=== PATIENT | male | born 1960 | race Caucasian/White ===

== ENCOUNTER 2019-05-06 14:56 | Inpatient (IN) | payer OTHER ==
[2019-05-06] MEDS: ACETAMINOPHEN 650 MG SUPP PR (15:15)
[2019-05-06] MEDS: SODIUM CHLORIDE 0.9% 1L BAG IV* (15:15)
[2019-05-06 15:27] LABS: ADD MAN DIFF? NO
[2019-05-06 15:28] LABS: WHITE BLOOD COUNT 7.7 10^3/ul (4.8-10.8)
[2019-05-06 15:28] LABS: BASOPHILS % 0.5 % (0.0-2.0); EOSINOPHILS # 0.1 10^3/ul (0.0-0.5); EOSINOPHILS % 0.8 % (0.0-7.0); HEMATOCRIT 43.9 % (42.0-52.0); HEMOGLOBIN 14.6 g/dl (14.0-18.0); LYMPHOCYTES % 25.6 % (15.0-51.0); MEAN CORPUSCULAR HEMOGLOBIN 30.1 pg (29.0-33.0); MEAN CORPUSCULAR HGB CONC 33.3 g/dl (32.0-37.0); MEAN CORPUSCULAR VOLUME 90.5 fl (82.0-101.0); MEAN PLATELET VOLUME 10.4 fl (7.4-10.4); MONOCYTE # 0.3 10^3/ul (0.3-0.9); MONOCYTES % 4.2 % (0.0-11.0); NEUTROPHIL # 5.2 10^3/ul (1.6-7.5); NEUTROPHILS % 67.9 % (39.0-77.0); PLATELET COUNT 185 10^3/UL (140-415); RED BLOOD COUNT 4.85 10^6/ul (4.70-6.10); RED CELL DISTRIBUTION WIDTH 13.8 % (11.5-14.5)
[2019-05-06] MEDS: CEFEPIME 2GM/50 ML (PMX) 50 ML IVPB (15:31)
[2019-05-06] MEDS: LEVETIRACETAM 1000 MG (PMX) 100 ML IVPB ×2 (15:44→22:02)
[2019-05-06 15:48] LABS: INR 0.91; PROTIME 12.4 Sec (11.9-14.9)
[2019-05-06 15:49] LABS: PARTIAL THROMBOPLASTIN TIME 21.1 Sec (23.0-35.0)
[2019-05-06] MEDS: LORAZEPAM 2 MG INJ IV (15:50)
[2019-05-06] MEDS ORDERED: LORAZEPAM 2 MG INJ (15:53)
[2019-05-06 15:54] LABS: ALANINE AMINOTRANSFERASE 12 IU/L (13-69); ALBUMIN 4.9 g/dl (3.3-4.9); ALBUMIN/GLOBULIN RATIO 1.36; ALKALINE PHOSPHATASE 73 IU/L (42-121); ANION GAP 19 (5-13); ASPARTATE AMINO TRANSFERASE 33 IU/L (15-46); BILIRUBIN,INDIRECT 0.4 mg/dl (0-1.1); BILIRUBIN,TOTAL 0.4 mg/dl (0.2-1.3); BLOOD UREA NITROGEN 16 mg/dl (7-20); CALCIUM 10.3 mg/dl (8.4-10.2); CARBON DIOXIDE 17 mmol/L (21-31); CHLORIDE 107 mmol/L (97-110); CREATININE 1.81 mg/dl (0.61-1.24); Estimated GFR 41 mL/min (>60); GLUCOSE 68 mg/dl (70-220); POTASSIUM 5.3 mmol/L (3.5-5.1); SODIUM 143 mmol/L (135-144); TOTAL PROTEIN 8.5 g/dl (6.1-8.1)
[2019-05-06 16:00] LABS: ETHANOL < 10.0 mg/dl (0-0)
[2019-05-06 16:04] LABS: TROPONIN-I 0.042 ng/ml (0.000-0.120)
[2019-05-06] MEDS: VANCOMYCIN 1 GM (PMX) 250 ML IVPB (16:17)
[2019-05-06] MEDS: SOD CHLORIDE 0.9% 1,000 ML IV ×2 (18:30→21:20)
[2019-05-06 18:57] LABS: UR CLARITY SLIGHTLY CLOUDY (CLEAR); UR COLOR AMBER (YELLOW); UR GLUCOSE (Dip) NEGATIVE (NEGATIVE); UR SPECIFIC GRAVITY (Dip) 1.025 (1.003-1.030); UR TOTAL PROTEIN (Dip) NEGATIVE (NEGATIVE)
[2019-05-06 18:58] LABS: ADD UMIC YES; UR BILIRUBIN (Dip) NEGATIVE (NEGATIVE); UR BLOOD (Dip) 2+ mg/dL (NEGATIVE); UR KETONES (Dip) NEGATIVE (NEGATIVE); UR LEUKOCYTE ESTERASE (Dip) NEGATIVE Leu/ul (NEGATIVE); UR MUCUS MODERATE /HPF (NONE SEEN); UR NITRITE (Dip) NEGATIVE (NEGATIVE); UR RBC 13 /HPF (0-5); UR UROBILINOGEN (Dip) NEGATIVE (NEGATIVE); UR WBC 3 /HPF (0-5)
[2019-05-06 19:39] LABS: LACTIC ACID 0.9 mmol/L (0.5-2.0)
[2019-05-06] MEDS ORDERED: SOD CHLORIDE 0.9% 1,000 ML IV (19:56)
[2019-05-06] MEDS ORDERED: ACETAMINOPHEN 325 MG TAB PO (20:00)
[2019-05-06] MEDS ORDERED: LORAZEPAM 2 MG INJ IV (20:00)
[2019-05-06] MEDS ORDERED: ACETAMINOPHEN 650MG/20.3ML CUP PO (20:00)
[2019-05-06] MEDS ORDERED: ALBUTEROL 0.083% (NEB) 2.5 MG/3 ML AMP NEB (20:00)
[2019-05-06] MEDS ORDERED: DOCUSATE SODIUM 100 MG CAP PO (20:00)
[2019-05-06] MEDS ORDERED: ALBUTEROL/IPRATROPIUM (NEB) 3 ML AMP NEB (20:00)
[2019-05-06] MEDS ORDERED: ONDANSETRON 4 MG INJ IV ×2 (20:00)
[2019-05-06] MEDS ORDERED: BISACODYL (EC) 5 MG TAB PO (20:00)
[2019-05-06] MEDS ORDERED: GLUCOSE GEL 15 GRAM TUBE PO ×2 (20:30)
[2019-05-06] MEDS ORDERED: GLUCAGON 1 MG INJ IM (20:30)
[2019-05-06] MEDS ORDERED: DEXTROSE 50% 50 ML SYRINGE IV ×2 (20:30)
[2019-05-06] MEDS ORDERED: GLUCOSE GEL 15 GRAM TUBE BUCCAL (20:30)
[2019-05-06] MEDS: INSULIN ASPART [NOVOLOG] 3 ML PEN SC (21:00)
[2019-05-06 21:38] LABS: BARBITURATES Negative (NEGATIVE); CANNABINOIDS Negative (NEGATIVE); COCAINE Negative (NEGATIVE); OPIATES Negative (NEGATIVE)
[2019-05-06 21:43] LABS: AMPHETAMINE/METHAMPHETAMINE POSITIVE (NEGATIVE); BENZODIAZEPINES Positive (NEGATIVE)
[2019-05-06] MEDS ORDERED: VANCOMYCIN IV PER PHARMACY XX (22:00)
[2019-05-06] MEDS: FAMOTIDINE 20 MG TAB PO (22:34)
[2019-05-06 23:35] LABS: ANION GAP 11 (5-13); BLOOD UREA NITROGEN 22 mg/dl (7-20); CALCIUM 8.1 mg/dl (8.4-10.2); CARBON DIOXIDE 19 mmol/L (21-31); CHLORIDE 113 mmol/L (97-110); CREATININE 1.58 mg/dl (0.61-1.24); Estimated GFR 45 mL/min (>60); GLUCOSE 93 mg/dl (70-220); POTASSIUM 4.1 mmol/L (3.5-5.1); SODIUM 143 mmol/L (135-144)
[2019-05-06 23:48] LABS: CK INDEX 0.2; CK-MB 7.57 ng/ml (0.0-2.4); CREATINE KINASE 4405 IU/L (23-200)
[2019-05-06 23:51] LABS: TROPONIN-I 0.226 ng/ml (0.000-0.120)
[2019-05-07 00:11] LABS: PROCALCITONIN 0.79 ng/mL (0.00-0.10)
[2019-05-07 00:51] LABS: AADO2 Arterial 49.1 mmHg (7.0-24.0); Allen Test ACCEPTAB; Arterial Base Excess -10.5 mmol/L (-3.0-3); Arterial Blood Gas Oxygen Sat 96.7 mmHG (95.0-98.0); Arterial COHb 0.3 % (0.0-3.0); Arterial Fraction of Oxyhgb 96.1 % (93.0-99.0); Arterial HCO3 15.7 mmol/L (22.0-26.0); Arterial MetHb 0.3 % (0.0-1.5); Arterial pCO2 35.7 mmhg (35-45); MODE NASAL CANNULA; Site Right Radial
[2019-05-07] MEDS: INSULIN ASPART [NOVOLOG] 3 ML PEN SC ×6 (01:00→20:44)
[2019-05-07] MEDS: ACCU-CHEK XX (02:00)
[2019-05-07] MEDS: SOD CHLORIDE 0.9% 1,000 ML IV ×5 (02:01→23:24)
[2019-05-07] MEDS: PIPER-TAZO 3.375 GM IV (PMX) 100 ML IVPB ×5 (02:01→23:25)
[2019-05-07] MEDS: VANCOMYCIN 750 MG (PMX) 250 ML IVPB ×2 (02:20→14:06)
[2019-05-07 04:03] LABS: TROPONIN-I 0.126 ng/ml (0.000-0.120)
[2019-05-07 04:43] LABS: CK INDEX 0.2; CREATINE KINASE 5191 IU/L (23-200)
[2019-05-07 05:12] LABS: ADD MAN DIFF? NO
[2019-05-07 05:20] LABS: WHITE BLOOD COUNT 5.4 10^3/ul (4.8-10.8)
[2019-05-07 05:20] LABS: ABNORMAL IP MESSAGE 1; BASOPHILS % 0.2 % (0.0-2.0); EOSINOPHILS % 0.2 % (0.0-7.0); HEMATOCRIT 36.4 % (42.0-52.0); HEMOGLOBIN 11.8 g/dl (14.0-18.0); LYMPHOCYTES # 0.7 10^3/ul (0.8-2.9); LYMPHOCYTES % 13.4 % (15.0-51.0); MEAN CORPUSCULAR HEMOGLOBIN 29.6 pg (29.0-33.0); MEAN CORPUSCULAR HGB CONC 32.4 g/dl (32.0-37.0); MEAN CORPUSCULAR VOLUME 91.5 fl (82.0-101.0); MONOCYTE # 0.5 10^3/ul (0.3-0.9); MONOCYTES % 9.3 % (0.0-11.0); NEUTROPHIL # 4.1 10^3/ul (1.6-7.5); NEUTROPHILS % 76.3 % (39.0-77.0); PLATELET COUNT 71 10^3/UL (140-415); POSITIVE DIFF @See below; RED BLOOD COUNT 3.98 10^6/ul (4.70-6.10); RED CELL DISTRIBUTION WIDTH 14.1 % (11.5-14.5)
[2019-05-07 05:35] LABS: HEMOGLOBIN A1C 5.1 % (0-5.9)
[2019-05-07 05:38] LABS: INR 1.17; PT RATIO 1.2
[2019-05-07 05:39] LABS: PARTIAL THROMBOPLASTIN TIME 22.1 Sec (23.0-35.0)
[2019-05-07 06:04] LABS: ALANINE AMINOTRANSFERASE 40 IU/L (13-69); ALBUMIN/GLOBULIN RATIO 1.07; ALKALINE PHOSPHATASE 49 IU/L (42-121); ANION GAP 6 (5-13); ASPARTATE AMINO TRANSFERASE 104 IU/L (15-46); BILIRUBIN,INDIRECT 0.8 mg/dl (0-1.1); BILIRUBIN,TOTAL 0.8 mg/dl (0.2-1.3); BLOOD UREA NITROGEN 23 mg/dl (7-20); CALCIUM 7.6 mg/dl (8.4-10.2); CARBON DIOXIDE 21 mmol/L (21-31); CHLORIDE 114 mmol/L (97-110); CHOL/HDL RATIO 2.7 RATIO; CHOLESTEROL 69 mg/dl (100-200); Estimated GFR 52 mL/min (>60); GLUCOSE 83 mg/dl (70-220); HDL CHOLESTEROL 25 mg/dl (28-71); LDL CHOLESTEROL,CALCULATED 39 mg/dl; MAGNESIUM 2.1 mg/dl (1.7-2.5); SODIUM 141 mmol/L (135-144); TOTAL PROTEIN 5.8 g/dl (6.1-8.1); TRIGLYCERIDES 26 mg/dl (0-149)
[2019-05-07 06:59] LABS: THYROID STIMULATING HORMONE 0.254 MIU/L (0.465-4.680)
[2019-05-07] MEDS: FAMOTIDINE 20 MG TAB PO ×2 (08:48→20:44)
[2019-05-07 09:07] LABS: TROPONIN-I 0.082 ng/ml (0.000-0.120)
[2019-05-07 14:52] LABS: TROPONIN-I 0.043 ng/ml (0.000-0.120)
[2019-05-07 15:04] LABS: CK-MB 7.66 ng/ml (0.0-2.4)
[2019-05-07 15:17] LABS: CK INDEX 0.1; CREATINE KINASE 5590 IU/L (23-200)
[2019-05-07] MEDS: AL HYDROX/MG HYDROX/SIMETH 30 ML CUP PO (23:25)
[2019-05-08] MEDS: VANCOMYCIN 750 MG (PMX) 250 ML IVPB (00:16)
[2019-05-08] MEDS: INSULIN ASPART [NOVOLOG] 3 ML PEN SC ×3 (01:00→08:12)
[2019-05-08] MEDS: ACCU-CHEK XX (01:23)
[2019-05-08 04:58] LABS: ADD MAN DIFF? NO
[2019-05-08 05:17] LABS: WHITE BLOOD COUNT 4.9 10^3/ul (4.8-10.8)
[2019-05-08 05:17] LABS: ABNORMAL IP MESSAGE 1; BASOPHILS % 0.6 % (0.0-2.0); EOSINOPHILS % 0.8 % (0.0-7.0); HEMATOCRIT 37.1 % (42.0-52.0); HEMOGLOBIN 12.1 g/dl (14.0-18.0); LYMPHOCYTES # 1.2 10^3/ul (0.8-2.9); LYMPHOCYTES % 23.3 % (15.0-51.0); MEAN CORPUSCULAR HEMOGLOBIN 30.2 pg (29.0-33.0); MEAN CORPUSCULAR HGB CONC 32.6 g/dl (32.0-37.0); MEAN CORPUSCULAR VOLUME 92.5 fl (82.0-101.0); MEAN PLATELET VOLUME 9.9 fl (7.4-10.4); MONOCYTE # 0.5 10^3/ul (0.3-0.9); MONOCYTES % 9.1 % (0.0-11.0); NEUTROPHIL # 3.3 10^3/ul (1.6-7.5); NEUTROPHILS % 65.8 % (39.0-77.0); PLATELET COUNT 61 10^3/UL (140-415); POSITIVE DIFF @See below; RED BLOOD COUNT 4.01 10^6/ul (4.70-6.10); RED CELL DISTRIBUTION WIDTH 14.1 % (11.5-14.5)
[2019-05-08 05:46] LABS: CREATINE KINASE 4235 IU/L (23-200)
[2019-05-08 05:51] LABS: ALANINE AMINOTRANSFERASE 453 IU/L (13-69); ALBUMIN/GLOBULIN RATIO 1.15; ALKALINE PHOSPHATASE 52 IU/L (42-121); ANION GAP 7 (5-13); ASPARTATE AMINO TRANSFERASE 515 IU/L (15-46); BILIRUBIN,INDIRECT 0.5 mg/dl (0-1.1); BILIRUBIN,TOTAL 0.5 mg/dl (0.2-1.3); BLOOD UREA NITROGEN 12 mg/dl (7-20); CALCIUM 7.5 mg/dl (8.4-10.2); CARBON DIOXIDE 21 mmol/L (21-31); CHLORIDE 112 mmol/L (97-110); CREATININE 1.11 mg/dl (0.61-1.24); Estimated GFR > 60 mL/min (>60); GLUCOSE 70 mg/dl (70-220); POTASSIUM 3.3 mmol/L (3.5-5.1); SODIUM 140 mmol/L (135-144); TOTAL PROTEIN 5.6 g/dl (6.1-8.1)
[2019-05-08] MEDS: PIPER-TAZO 3.375 GM IV (PMX) 100 ML IVPB (06:20)
[2019-05-08] MEDS: SOD CHLORIDE 0.9% 1,000 ML IV ×3 (06:46→20:35)
[2019-05-08] MEDS: POTASSIUM CHLORIDE (SR) 20 MEQ TAB PO ×2 (08:11→13:45)
[2019-05-08] MEDS: FAMOTIDINE 20 MG TAB PO ×2 (08:11→20:34)
[2019-05-08] MEDS: AL HYDROX/MG HYDROX/SIMETH 30 ML CUP PO (08:11)
[2019-05-08 11:48] LABS: VANCOMYCIN,TROUGH 12.1 ug/ml (10.0-20.0)
[2019-05-08] MEDS: CEFTRIAXONE 1 GM/50 ML (PMX) 50 ML IVPB (12:54)
[2019-05-08 17:37] LABS: CREATINE KINASE 2390 IU/L (23-200)
[2019-05-08] MEDS: NICOTINE (21 MG/24 HR) PATCH TRANSDERM (18:46)
[2019-05-09] MEDS: SOD CHLORIDE 0.9% 1,000 ML IV ×4 (04:50→21:33)
[2019-05-09 05:31] LABS: ADD MAN DIFF? NO
[2019-05-09 05:35] LABS: WHITE BLOOD COUNT 4.7 10^3/ul (4.8-10.8)
[2019-05-09 05:35] LABS: ABNORMAL IP MESSAGE 1; BASOPHILS % 0.6 % (0.0-2.0); EOSINOPHILS # 0.1 10^3/ul (0.0-0.5); EOSINOPHILS % 1.3 % (0.0-7.0); HEMATOCRIT 41.6 % (42.0-52.0); HEMOGLOBIN 13.8 g/dl (14.0-18.0); LYMPHOCYTES # 1.1 10^3/ul (0.8-2.9); LYMPHOCYTES % 22.8 % (15.0-51.0); MEAN CORPUSCULAR HEMOGLOBIN 29.8 pg (29.0-33.0); MEAN CORPUSCULAR HGB CONC 33.2 g/dl (32.0-37.0); MEAN CORPUSCULAR VOLUME 89.8 fl (82.0-101.0); MEAN PLATELET VOLUME 9.9 fl (7.4-10.4); MONOCYTE # 0.5 10^3/ul (0.3-0.9); NEUTROPHILS % 63.9 % (39.0-77.0); PLATELET COUNT 82 10^3/UL (140-415); POSITIVE DIFF @See below; RED BLOOD COUNT 4.63 10^6/ul (4.70-6.10); RED CELL DISTRIBUTION WIDTH 13.7 % (11.5-14.5)
[2019-05-09 06:20] LABS: ALANINE AMINOTRANSFERASE 388 IU/L (13-69); ALBUMIN 3.6 g/dl (3.3-4.9); ALBUMIN/GLOBULIN RATIO 1.24; ALKALINE PHOSPHATASE 62 IU/L (42-121); ANION GAP 9 (5-13); ASPARTATE AMINO TRANSFERASE 232 IU/L (15-46); BILIRUBIN,INDIRECT 0.8 mg/dl (0-1.1); BILIRUBIN,TOTAL 0.8 mg/dl (0.2-1.3); BLOOD UREA NITROGEN 4 mg/dl (7-20); CALCIUM 8.4 mg/dl (8.4-10.2); CARBON DIOXIDE 26 mmol/L (21-31); CHLORIDE 106 mmol/L (97-110); CREATININE 0.81 mg/dl (0.61-1.24); Estimated GFR > 60 mL/min (>60); GLUCOSE 98 mg/dl (70-220); POTASSIUM 3.5 mmol/L (3.5-5.1); SODIUM 141 mmol/L (135-144); TOTAL PROTEIN 6.5 g/dl (6.1-8.1)
[2019-05-09 06:36] LABS: CREATINE KINASE 1117 IU/L (23-200)
[2019-05-09] MEDS: FAMOTIDINE 20 MG TAB PO ×2 (08:17→21:21)
[2019-05-09] MEDS: NICOTINE (21 MG/24 HR) PATCH TRANSDERM (08:18)
[2019-05-09] MEDS: LEVOFLOXACIN 750 MG TABLET PO (11:22)
[2019-05-09 12:21] LABS: PHOSPHORUS 1.8 mg/dl (2.5-4.9)
[2019-05-09 19:20] LABS: CREATINE KINASE 675 IU/L (23-200)
[2019-05-10] MEDS: LEVOFLOXACIN 750 MG TABLET PO (05:27)
[2019-05-10 05:54] LABS: ADD MAN DIFF? NO
[2019-05-10 06:04] LABS: BASOPHILS % 0.4 % (0.0-2.0); EOSINOPHILS # 0.1 10^3/ul (0.0-0.5); EOSINOPHILS % 1.1 % (0.0-7.0); HEMATOCRIT 45.8 % (42.0-52.0); HEMOGLOBIN 15.4 g/dl (14.0-18.0); LYMPHOCYTES # 1.2 10^3/ul (0.8-2.9); MEAN CORPUSCULAR HEMOGLOBIN 30.4 pg (29.0-33.0); MEAN CORPUSCULAR HGB CONC 33.6 g/dl (32.0-37.0); MEAN CORPUSCULAR VOLUME 90.3 fl (82.0-101.0); MEAN PLATELET VOLUME 10.3 fl (7.4-10.4); MONOCYTE # 0.4 10^3/ul (0.3-0.9); MONOCYTES % 5.7 % (0.0-11.0); NEUTROPHIL # 5.3 10^3/ul (1.6-7.5); NEUTROPHILS % 75.5 % (39.0-77.0); PLATELET COUNT 107 10^3/UL (140-415); RED BLOOD COUNT 5.07 10^6/ul (4.70-6.10); RED CELL DISTRIBUTION WIDTH 13.4 % (11.5-14.5)
[2019-05-10 06:23] LABS: ALANINE AMINOTRANSFERASE 277 IU/L (13-69); ALBUMIN 3.8 g/dl (3.3-4.9); ALBUMIN/GLOBULIN RATIO 1.35; ALKALINE PHOSPHATASE 60 IU/L (42-121); ANION GAP 10 (5-13); ASPARTATE AMINO TRANSFERASE 108 IU/L (15-46); BILIRUBIN,INDIRECT 0.9 mg/dl (0-1.1); BILIRUBIN,TOTAL 0.9 mg/dl (0.2-1.3); BLOOD UREA NITROGEN 6 mg/dl (7-20); CALCIUM 9.2 mg/dl (8.4-10.2); CARBON DIOXIDE 28 mmol/L (21-31); CHLORIDE 102 mmol/L (97-110); CREATININE 0.82 mg/dl (0.61-1.24); Estimated GFR > 60 mL/min (>60); GLUCOSE 114 mg/dl (70-220); POTASSIUM 3.9 mmol/L (3.5-5.1); SODIUM 140 mmol/L (135-144); TOTAL PROTEIN 6.6 g/dl (6.1-8.1)
[2019-05-10 06:37] LABS: CREATINE KINASE 410 IU/L (23-200)
[2019-05-10] MEDS: SOD CHLORIDE 0.9% 1,000 ML IV (07:24)
[2019-05-10] MEDS: FAMOTIDINE 20 MG TAB PO ×2 (08:20→21:15)
[2019-05-10] MEDS: NICOTINE (21 MG/24 HR) PATCH TRANSDERM (08:21)
[2019-05-10] MEDS: MAGNESIUM SULFATE 1 GM/D5W 100 ML IVPB (15:26)
[2019-05-10] MEDS: METOPROLOL 25 MG TAB PO ×2 (15:26→21:20)
[2019-05-10] MEDS: RISPERIDONE 1 MG TAB PO (21:15)
[2019-05-10] MEDS: HYDROCORTISONE 2.5% 28.35 GM OINT TOP (21:15)
[2019-05-10] MEDS: traZODone 100 MG TAB PO (21:15)
[2019-05-11] MEDS: LEVOFLOXACIN 750 MG TABLET PO (05:14)
[2019-05-11 05:48] LABS: ADD MAN DIFF? NO
[2019-05-11 05:55] LABS: WHITE BLOOD COUNT 8.3 10^3/ul (4.8-10.8)
[2019-05-11 05:55] LABS: BASOPHILS % 0.5 % (0.0-2.0); EOSINOPHILS # 0.2 10^3/ul (0.0-0.5); EOSINOPHILS % 2.4 % (0.0-7.0); HEMATOCRIT 47.2 % (42.0-52.0); HEMOGLOBIN 15.5 g/dl (14.0-18.0); LYMPHOCYTES # 1.9 10^3/ul (0.8-2.9); LYMPHOCYTES % 23.4 % (15.0-51.0); MEAN CORPUSCULAR HEMOGLOBIN 29.6 pg (29.0-33.0); MEAN CORPUSCULAR HGB CONC 32.8 g/dl (32.0-37.0); MEAN CORPUSCULAR VOLUME 90.1 fl (82.0-101.0); MEAN PLATELET VOLUME 10.1 fl (7.4-10.4); MONOCYTE # 0.6 10^3/ul (0.3-0.9); MONOCYTES % 7.4 % (0.0-11.0); NEUTROPHIL # 5.5 10^3/ul (1.6-7.5); NEUTROPHILS % 65.8 % (39.0-77.0); PLATELET COUNT 159 10^3/UL (140-415); RED BLOOD COUNT 5.24 10^6/ul (4.70-6.10); RED CELL DISTRIBUTION WIDTH 13.4 % (11.5-14.5)
[2019-05-11 06:25] LABS: ANION GAP 11 (5-13); BLOOD UREA NITROGEN 14 mg/dl (7-20); CALCIUM 9.8 mg/dl (8.4-10.2); CARBON DIOXIDE 26 mmol/L (21-31); CHLORIDE 104 mmol/L (97-110); CREATININE 1.17 mg/dl (0.61-1.24); Estimated GFR > 60 mL/min (>60); GLUCOSE 110 mg/dl (70-220); MAGNESIUM 1.8 mg/dl (1.7-2.5); PHOSPHORUS 4.1 mg/dl (2.5-4.9); POTASSIUM 3.7 mmol/L (3.5-5.1); SODIUM 141 mmol/L (135-144)
[2019-05-11] MEDS: METOPROLOL 25 MG TAB PO ×2 (08:33→20:56)
[2019-05-11] MEDS: FAMOTIDINE 20 MG TAB PO ×2 (08:33→20:55)
[2019-05-11] MEDS: NICOTINE (21 MG/24 HR) PATCH TRANSDERM (08:34)
[2019-05-11] MEDS: POTASSIUM CHLORIDE (SR) 20 MEQ TAB PO (17:27)
[2019-05-11] MEDS: MAGNESIUM SULFATE 2 GM/50 ML 50 ML IVPB (17:27)
[2019-05-11] MEDS: traZODone 100 MG TAB PO (20:54)
[2019-05-11] MEDS: RISPERIDONE 1 MG TAB PO (20:54)
[2019-05-12] MEDS: LEVOFLOXACIN 750 MG TABLET PO (05:34)
[2019-05-12 05:53] LABS: ADD MAN DIFF? NO
[2019-05-12 05:56] LABS: WHITE BLOOD COUNT 8.1 10^3/ul (4.8-10.8)
[2019-05-12 05:56] LABS: BASOPHIL # 0.1 10^3/ul (0.0-0.1); BASOPHILS % 0.6 % (0.0-2.0); EOSINOPHILS # 0.3 10^3/ul (0.0-0.5); EOSINOPHILS % 3.4 % (0.0-7.0); HEMATOCRIT 44.5 % (42.0-52.0); LYMPHOCYTES # 1.7 10^3/ul (0.8-2.9); LYMPHOCYTES % 21.2 % (15.0-51.0); MEAN CORPUSCULAR HEMOGLOBIN 30.4 pg (29.0-33.0); MEAN CORPUSCULAR HGB CONC 33.7 g/dl (32.0-37.0); MEAN CORPUSCULAR VOLUME 90.3 fl (82.0-101.0); MEAN PLATELET VOLUME 9.9 fl (7.4-10.4); MONOCYTE # 0.5 10^3/ul (0.3-0.9); MONOCYTES % 6.6 % (0.0-11.0); NEUTROPHIL # 5.4 10^3/ul (1.6-7.5); NEUTROPHILS % 67.6 % (39.0-77.0); PLATELET COUNT 169 10^3/UL (140-415); RED BLOOD COUNT 4.93 10^6/ul (4.70-6.10); RED CELL DISTRIBUTION WIDTH 13.5 % (11.5-14.5)
[2019-05-12 06:21] LABS: ANION GAP 9 (5-13); BLOOD UREA NITROGEN 16 mg/dl (7-20); CALCIUM 9.6 mg/dl (8.4-10.2); CARBON DIOXIDE 26 mmol/L (21-31); CHLORIDE 108 mmol/L (97-110); Estimated GFR > 60 mL/min (>60); GLUCOSE 97 mg/dl (70-220); MAGNESIUM 1.9 mg/dl (1.7-2.5); PHOSPHORUS 3.7 mg/dl (2.5-4.9); POTASSIUM 4.5 mmol/L (3.5-5.1); SODIUM 143 mmol/L (135-144)
[2019-05-12] MEDS: FAMOTIDINE 20 MG TAB PO ×2 (08:07→21:55)
[2019-05-12] MEDS: METOPROLOL 25 MG TAB PO ×2 (08:07→21:00)
[2019-05-12] MEDS: NICOTINE (21 MG/24 HR) PATCH TRANSDERM (08:08)
[2019-05-12] MEDS: SOD CHLORIDE 0.9% 1,000 ML IV (12:32)
[2019-05-12] MEDS: MAGNESIUM SULFATE 2 GM/50 ML 50 ML IVPB (17:19)
[2019-05-12] MEDS: traZODone 100 MG TAB PO (21:55)
[2019-05-12] MEDS: RISPERIDONE 1 MG TAB PO (21:55)
[2019-05-13 05:09] LABS: ADD MAN DIFF? NO
[2019-05-13 05:14] LABS: WHITE BLOOD COUNT 6.6 10^3/ul (4.8-10.8)
[2019-05-13 05:14] LABS: BASOPHILS % 0.6 % (0.0-2.0); EOSINOPHILS # 0.2 10^3/ul (0.0-0.5); EOSINOPHILS % 2.9 % (0.0-7.0); HEMATOCRIT 43.1 % (42.0-52.0); HEMOGLOBIN 14.1 g/dl (14.0-18.0); LYMPHOCYTES # 1.7 10^3/ul (0.8-2.9); LYMPHOCYTES % 26.5 % (15.0-51.0); MEAN CORPUSCULAR HEMOGLOBIN 29.9 pg (29.0-33.0); MEAN CORPUSCULAR HGB CONC 32.7 g/dl (32.0-37.0); MEAN CORPUSCULAR VOLUME 91.3 fl (82.0-101.0); MEAN PLATELET VOLUME 9.7 fl (7.4-10.4); MONOCYTE # 0.4 10^3/ul (0.3-0.9); MONOCYTES % 6.4 % (0.0-11.0); NEUTROPHIL # 4.1 10^3/ul (1.6-7.5); PLATELET COUNT 178 10^3/UL (140-415); RED BLOOD COUNT 4.72 10^6/ul (4.70-6.10); RED CELL DISTRIBUTION WIDTH 13.5 % (11.5-14.5)
[2019-05-13 05:45] LABS: ANION GAP 7 (5-13); BLOOD UREA NITROGEN 19 mg/dl (7-20); CALCIUM 9.5 mg/dl (8.4-10.2); CARBON DIOXIDE 29 mmol/L (21-31); CHLORIDE 105 mmol/L (97-110); CREATININE 1.02 mg/dl (0.61-1.24); Estimated GFR > 60 mL/min (>60); GLUCOSE 100 mg/dl (70-220); MAGNESIUM 1.8 mg/dl (1.7-2.5); PHOSPHORUS 3.8 mg/dl (2.5-4.9); POTASSIUM 3.9 mmol/L (3.5-5.1); SODIUM 141 mmol/L (135-144)
[2019-05-13] MEDS: METOPROLOL 25 MG TAB PO (08:14)
[2019-05-13] MEDS: FAMOTIDINE 20 MG TAB PO ×2 (08:15→21:01)
[2019-05-13] MEDS: NICOTINE (21 MG/24 HR) PATCH TRANSDERM (08:16)
[2019-05-13] MEDS: MAGNESIUM SULFATE 3 GM in DEXTROSE 5% 100 ML IVPB (15:51)
[2019-05-14 06:04] LABS: ADD MAN DIFF? NO
[2019-05-14 06:16] LABS: WHITE BLOOD COUNT 7.1 10^3/ul (4.8-10.8)
[2019-05-14 06:16] LABS: BASOPHILS % 0.4 % (0.0-2.0); EOSINOPHILS # 0.1 10^3/ul (0.0-0.5); EOSINOPHILS % 1.8 % (0.0-7.0); HEMATOCRIT 44.3 % (42.0-52.0); HEMOGLOBIN 14.5 g/dl (14.0-18.0); LYMPHOCYTES # 1.7 10^3/ul (0.8-2.9); LYMPHOCYTES % 24.6 % (15.0-51.0); MEAN CORPUSCULAR HEMOGLOBIN 30.3 pg (29.0-33.0); MEAN CORPUSCULAR HGB CONC 32.7 g/dl (32.0-37.0); MEAN CORPUSCULAR VOLUME 92.7 fl (82.0-101.0); MEAN PLATELET VOLUME 10.1 fl (7.4-10.4); MONOCYTE # 0.5 10^3/ul (0.3-0.9); MONOCYTES % 7.6 % (0.0-11.0); NEUTROPHIL # 4.6 10^3/ul (1.6-7.5); NEUTROPHILS % 65.2 % (39.0-77.0); PLATELET COUNT 207 10^3/UL (140-415); RED BLOOD COUNT 4.78 10^6/ul (4.70-6.10); RED CELL DISTRIBUTION WIDTH 13.6 % (11.5-14.5)
[2019-05-14 07:08] LABS: ANION GAP 8 (5-13); BLOOD UREA NITROGEN 20 mg/dl (7-20); CALCIUM 9.1 mg/dl (8.4-10.2); CARBON DIOXIDE 29 mmol/L (21-31); CHLORIDE 104 mmol/L (97-110); CREATININE 1.04 mg/dl (0.61-1.24); Estimated GFR > 60 mL/min (>60); GLUCOSE 92 mg/dl (70-220); MAGNESIUM 1.9 mg/dl (1.7-2.5); PHOSPHORUS 3.3 mg/dl (2.5-4.9); POTASSIUM 4.1 mmol/L (3.5-5.1); SODIUM 141 mmol/L (135-144)
[2019-05-14] MEDS: FAMOTIDINE 20 MG TAB PO ×2 (08:13→20:34)
[2019-05-14] MEDS: NICOTINE (21 MG/24 HR) PATCH TRANSDERM (08:13)
[2019-05-15] MEDS: FAMOTIDINE 20 MG TAB PO ×2 (08:03→21:41)
[2019-05-15] MEDS: NICOTINE (21 MG/24 HR) PATCH TRANSDERM (08:04)
[2019-05-15 08:35] LABS: ADD MAN DIFF? NO
[2019-05-15 08:36] LABS: BASOPHILS % 0.6 % (0.0-2.0); EOSINOPHILS # 0.1 10^3/ul (0.0-0.5); EOSINOPHILS % 1.1 % (0.0-7.0); HEMATOCRIT 47.4 % (42.0-52.0); HEMOGLOBIN 15.5 g/dl (14.0-18.0); LYMPHOCYTES # 1.4 10^3/ul (0.8-2.9); LYMPHOCYTES % 26.4 % (15.0-51.0); MEAN CORPUSCULAR HEMOGLOBIN 30.1 pg (29.0-33.0); MEAN CORPUSCULAR HGB CONC 32.7 g/dl (32.0-37.0); MEAN PLATELET VOLUME 9.6 fl (7.4-10.4); MONOCYTE # 0.4 10^3/ul (0.3-0.9); MONOCYTES % 7.9 % (0.0-11.0); NEUTROPHIL # 3.4 10^3/ul (1.6-7.5); NEUTROPHILS % 63.4 % (39.0-77.0); PLATELET COUNT 230 10^3/UL (140-415); RED BLOOD COUNT 5.15 10^6/ul (4.70-6.10); RED CELL DISTRIBUTION WIDTH 13.5 % (11.5-14.5)
[2019-05-15 08:36] LABS: WHITE BLOOD COUNT 5.4 10^3/ul (4.8-10.8)
[2019-05-15 08:56] LABS: ANION GAP 9 (5-13); BLOOD UREA NITROGEN 18 mg/dl (7-20); CALCIUM 9.7 mg/dl (8.4-10.2); CARBON DIOXIDE 30 mmol/L (21-31); CHLORIDE 103 mmol/L (97-110); CREATININE 0.95 mg/dl (0.61-1.24); Estimated GFR > 60 mL/min (>60); GLUCOSE 92 mg/dl (70-220); MAGNESIUM 1.8 mg/dl (1.7-2.5); PHOSPHORUS 3.1 mg/dl (2.5-4.9); POTASSIUM 4.4 mmol/L (3.5-5.1); SODIUM 142 mmol/L (135-144)
[2019-05-15 09:56] LABS: BARBITURATES Negative (NEGATIVE); BENZODIAZEPINES Negative (NEGATIVE); CANNABINOIDS Negative (NEGATIVE); COCAINE Negative (NEGATIVE); OPIATES Negative (NEGATIVE)
[2019-05-15 10:02] LABS: AMPHETAMINE/METHAMPHETAMINE POSITIVE (NEGATIVE)
[2019-05-16] MEDS: FAMOTIDINE 20 MG TAB PO ×2 (09:15→21:17)
[2019-05-16] MEDS: NICOTINE (21 MG/24 HR) PATCH TRANSDERM (09:15)
[2019-05-17] MEDS: NICOTINE (21 MG/24 HR) PATCH TRANSDERM (09:00)
[2019-05-17] MEDS: FAMOTIDINE 20 MG TAB PO (09:52)
== END 2019-05-17 12:39 | disposition home or self-care (01) | DRG 922 ==
LOC: MS1 05-17 01:08 → E/R 14:56 → 6WM 05-08 15:30 → ICU 19:57
PROVIDERS: Family Medicine
DX: T67.0XXA Heatstroke and sunstroke, initial encounter (principal); G92 Toxic encephalopathy; N17.9 Acute kidney failure, unspecified; I47.1 Supraventricular tachycardia; X30.XXXA Exposure to excessive natural heat, initial encounter; F15.90 Other stimulant use, unspecified, uncomplicated; R56.9 Unspecified convulsions; Z72.0 Tobacco use; I95.9 Hypotension, unspecified; R00.1 Bradycardia, unspecified
CPT/HCPCS: 36415; 36600; 70450; 70551; 71045; 76705; 76775; 80048; 80053; 80061; 80202; 80307; 81001; 82306; 82550; 82553; 82803; 82962; 83036; 83605; 83735; 84100; 84145; 84443; 84484; 85025; 85610; 85730; 87040-91; 87081; 87086; 93005; 93306; 93970; 95819; 96374; 96375; 97161; 99285-25